=== PATIENT | male | born 1945 | race Caucasian/White ===

== ENCOUNTER 2021-11-28 06:32 | Inpatient (IN) | payer MEDICARE, BC ==
[2021-11-28] VITALS (14 sets, daily range): BP systolic 119–182; BP diastolic 72–91; PULSE 55–91; TEMP 97.1–98.8
[~2021-11-28] VITALS: Ht 167.6 cm; Wt 77.3 kg
[~2021-11-28 06:32] MED LIST: ARICEPT 5MG PO; ASPIRIN 81M81 MG/TA2 PO; ATIVAN 1MG T1 MG/TAB PO; B-12 500 MCG PO; BUPROBAN150 MG PO; CEFTIN500 MG PO; DESYREL 50MG50 MG PO; DILANTIN 100MG100 MG PO; DILANTIN 50MG C50 MG PO; FISH OIL1000 MG PO; HCTZ 25MG TAB25 MG PO; K-DUR 10 MEQ T10 MEQ PO; LIPITOR20 MG PO; LOPRESSOR100 MG PO; LOTREL 2.5 MG-11 CAP PO; MULTI VITAMINS1 TAB PO; NEURONTIN300 MG/CAP PO; NITROSTAT0.4 MG/TAB SL; PERCOCET 325 MG1 TA2 PO; REQUIP3 MG PO; SINEMET 25/101 UDTAB PO; SINEMET CR 50 M1 TER PO; SYMMETREL100 M1 PO; TYLENOL 325MG325 MG PO; ULTRAM 50MG TAB50 MG PO; WELLBUTRIN SR150 M1 PO; ZESTRIL 5MG5 MG PO; ZOLOFT 100MG100 MG PO
[2021-11-28] MEDS ORDERED: VITAMIN C500 MG PO (07:56)
[2021-11-28] MEDS ORDERED: ALIGN (07:56)
[2021-11-28] MEDS ORDERED: OPTIVE 0.5%-0.915 ML OP (07:57)
[2021-11-28] MEDS ORDERED: VITAMIN D31000 I1 PO (07:58)
[2021-11-28] MEDS ORDERED: VITAMIN B12 781 TAB PO (07:59)
[2021-11-28] MEDS ORDERED: CYMBALTA 60MG60 MG PO (07:59)
[2021-11-28] MEDS ORDERED: PROSCAR 5MG5 MG PO (08:00)
[2021-11-28] MEDS ORDERED: FLONASEALLERGY NS (08:01)
[2021-11-28] MEDS ORDERED: ZESTRIL 5MG5 MG PO (08:01)
[2021-11-28] MEDS ORDERED: MELATONIN5 M1 SL (08:02)
[2021-11-28] MEDS ORDERED: MOBIC15 MG PO (08:03)
[2021-11-28] MEDS ORDERED: TOPROL XL 50MG50 MG PO (08:03)
[2021-11-28] MEDS ORDERED: PAXIL40 MG PO (08:05)
[2021-11-28] MEDS ORDERED: SYSTANE 0.4%-0.1 SOL OU (08:06)
[2021-11-28] MEDS ORDERED: REQUIP 1MG T1 MG/TAB PO (08:07)
[2021-11-28] MEDS ORDERED: FLOMAX 0.40.4 MG/CAP PO (08:08)
[2021-11-28] MEDS ORDERED: RESTORIL 1515 MG/CAP PO (08:08)
[2021-11-28] MEDS ORDERED: MIRALAX PA17 GM/Dose PO (08:09)
[2021-11-28] MEDS ORDERED: CENA K20 MEQ/15 PO (08:10)
[2021-11-28] MEDS ORDERED: ARICEPT10 MG PO (08:11)
[2021-11-28] MEDS ORDERED: NEURONTIN300 MG/CAP PO (08:11)
[2021-11-28] MEDS ORDERED: TYLENOL 500MG500 MG PO (08:11)
[2021-11-28] MEDS ORDERED: ROBINUL1 MG PO (08:12)
[2021-11-28] MEDS ORDERED: SINGULAIR 110 MG/TAB PO (08:13)
[2021-11-28] MEDS ORDERED: AZILECT1 MG PO (08:13)
--- NOTE | 2021-11-28 09:52 | NUR ---
Initial visit; Patient and his thanked Dinkey Mechanic for looking in on him and offering encouragement and prayer. Patient and his and Dinkey Mechanic enjoyed visiting and spending a little time together having been friends and neighbors many years ago. Patient thanked Dinkey Mechanic for sharing her life and times with them. Dinkey Mechanic will look in on Jeff following his surgical procedure today.
--- NOTE | 2021-11-28 10:00 | NUR ---
Pt transferred to surgical care but remains in PACU until staff available. Pt awake and alert. brought to bedside. Call light in reach. VSS. CBI infusing with output clear, rate slow. Pt provided with sprite and jello per his request.
--- NOTE | 2021-11-28 11:00 | NUR ---
Pt tolerates jello and sprite, will advance diet per order and lunch tray ordered. Pt able to move lower extremities now. Denies needs. Call light in reach.
[2021-11-28] MEDS ORDERED: SINEMET 25/101 UDTAB PO (11:15)
--- NOTE | 2021-11-28 12:00 | NUR ---
Confirmed medication list with and pharmacy updated. Pt requests his noon Sinemet. Given per orders. Pt move legs around more and tolerates his lunch well. Denies pain or needs. Slight increase in bleeding with CBI pink-light red, rate increased slightly and output clear.
--- NOTE | 2021-11-28 13:00 | NUR ---
Pt eats 100% of lunch tray and given ice cream per request and tolerates well. Pt able to move legs around now, mild back discomfort but improves with movement. CBI rate slow and output clear-light pink. VSS.
--- NOTE | 2021-11-28 14:00 | NUR ---
Report given to ROXANA Saeed. Pt to room 328 at this time. remains at bedside and belongings placed in closet. Pt has completed post-op vitals. CBI credit 6000 mls and output remains clear-pink. Call light in reach. ROXANA Claros to bedside.
--- NOTE | 2021-11-28 14:00 | NUR ---
PT ARRIVED FROM PACU. PT COMPLETED FULL RECOVERY IN PACU. PT IS AXOX4. PT HAS ADDISON WITH CBI. PT GIVEN PO MEDS AND IVF. PT AND ORIENTED TO ROOM AND FLOOR. PT HAS CALL LIGHT AND PHONE. NO NEEDS AT THIS TIME.
--- NOTE | 2021-11-28 17:16 | NUR ---
Call placed to data integrity consultant urology regarding pt's htn. is data integrity consultant but no answer. Answering service will leave message.
--- NOTE | 2021-11-28 17:25 | NUR ---
returned message. States he will review chart and order something for HTN.
--- NOTE | 2021-11-28 18:19 | NUR ---
Pt attempted to get out of bed without assistance, bedside. Pt fell to his knee's. Pt appears to have no injuries. Pt states he is fine. Barrow catheter still in place. called and notified. No new orders received. Pt back in bed with 3 side rails up, fall precautions in place, bed alarm active, and pt and instructed Pt is not to get out of bed without staff help.
[2021-11-29 03:18] VITALS: BP 187/93; PULSE 111; TEMP 97.8
[2021-11-29 08:00] VITALS: BP 136/88; PULSE 114; TEMP 98.4
--- NOTE | 2021-11-29 08:00 | NUR ---
PATIENT IS ORIENTED X2 AND IS ABLE TO ANSWER ORIENTATION QUESTIONS HOWEVER PATIENT SEEMS TO HAVE A DIFFICULT TIME FOLLOWING DIRECTIONS AT TIMES AND HAS ASKED THE SAME QUESTIONS A COUPLE TIME DURING ASSESSMENT. PATIENT HAS HX OF PARKINSON'S. NOTED WEAK AND UNSTEADY GAIT. HX OF FALLS. PATIENT ASSISTED TO BEDSIDE CHAIR WITH 1 ASSIST. CHAIR ALARM ON. BREAKFAST TRAY AT BEDSIDE. NO C/O PAIN OR NAUSEA. IV FLUIDS INFUSING INTO RIGHT WRIST. ADDISON TO DD WITH RED-TINGED COLORED URINE WITH A FEW CLOTS NOTED. CBI INFUSING AT MOD RATE. AM MEDS GIVEN. HEAD TO TOE ASSESSMENT COMPLETE. SCD'S CURRENTLY OFF. NO OTHER NEEDS AT THIS TIME. CALL LIGHT IN REACH.
--- NOTE | 2021-11-29 09:16 | NUR ---
Follow-up visit; Patient's states he had a bad night and his blood pressure is high but she attributes this to experiencing stress because he was alone all night. Patient asked about Holy Communion and Classer explained that he will be offered the Sacraments is he is here this weekend though this is highly unlikely. Patient said he is ready to go home. He and his thanked Classer for looking in on them and offering God's blessings.
--- NOTE | 2021-11-29 10:30 | NUR ---
NOTIFIED UROLOGY OF TACHYCARDIA IN THE LOW 100'S, CURRENTLY 114. PATIENT B/P WAS ALSO HYPERTENSIVE IN THE 180'S SYSTOLIC LAST NIGHT BUT CAME DOWN INTO THE 130'S SYSTOLIC AFTER HOME DOSE OF LISINOPRIL. ASYMPTOMATIC. HX OF [place]. SEE NEW ORDERS.
--- NOTE | 2021-11-29 10:53 | NUR ---
SW met with patient to complete intake. Patient states that he lives in [facility] with his Melody Moreno [phone]. Patient provides that he uses a walker and is independent with with ADL's. states that she assists to ensure he is safe in the shower. Patient provides that he obtains HH from the ID and stated they are aware of him being in the hospital and she would inform them when he returns home to resume services. PCP is Dr. Moulton, pharmacy is the [facility]. DPOA/HC is spouse Melody Moreno. DC plan is to return home upon DC. BEENA will continue to follow. DC plan: home
[2021-11-29 11:48] LABS: BASO % 0.3 % (0.0-2.0); EOS # 0.1 K/mm3 (0.0-0.7); EOS % 0.5 % (0.0-4.0); GRAN # 7.9 K/mm3 (1.4-6.5); GRAN % 71.9 % (42.2-75.2); HEMATOCRIT 40.8 % (42.0-52.0); HEMOGLOBIN 14.2 g/dl (13.5-18.0); LYMPH # 1.9 K/mm3 (1.2-3.4); LYMPH % 17.7 % (20.0-51.0); MEAN CELL VOLUME 100 fl (80.0-100.0); MEAN CORPUSCULAR HEMOGLOBIN 35 pg (27-31); MEAN CORPUSCULAR HGB CONC 35 g/dl (33.0-37.0); MEAN PLATELET VOLUME 8.4 fl (7.4-10.4); MONO % 9.1 % (1.7-9.3); PLATELET COUNT 196 K/mm3 (130-400); REDCELL DISTRIBUTION WIDTH-CV 12.7 % (11.5-14.5)
[2021-11-29 12:00] VITALS: BP 171/96; PULSE 108; TEMP 97.7
[2021-11-29 12:07] LABS: ALKALINE PHOSPHATASE 86 U/L (40-150); ANION GAP 12 mmol/L (7-16); AST,SGOT 17 U/L (5-34); BLOOD UREA NITROGEN 13 mg/dL (8-26); CALCIUM 9.3 mg/dL (8.4-10.2); CARBON DIOXIDE 27 mmol/L (23-31); CHLORIDE 104 mmol/L (98-107); CREATININE, serum 0.79 mg/dL (0.72-1.25); GLUCOSE 121 mg/dL (70-99); POTASSIUM 3.4 mmol/L (3.5-4.5); SODIUM 143 mmol/L (136-145); TOTAL PROTEIN 7.6 gm/dL (6.2-8.1)
[2021-11-29 12:10] LABS: ALANINE AMINOTRANSFERASE < 6 U/L (0-55)
[2021-11-29 13:04] LABS: TSH w REFLEX 1.387 uIU/mL (0.350-4.940)
--- NOTE | 2021-11-29 13:30 | NUR ---
PATIENT'S CHAIR ALARM GOING OFF. CAUGHT HELPING PATIENT UP AND HE NEARLY FELL. PATIENT SAT DOWN ON THE RECLINER FOOTREST FROM A STANDING POSITION AND NURSING ENTERED ROOM JUST IN TIME TO PREVENT HIM FROM FALLING. WAS IN THE ROOM YESTERDAY WHEN HE FELL. FALL RISK EDUCATION GIVEN TO BOTH PATIENT AND AGAIN. WHEN PATIENT SAT ON RECLINER FOOT REST HE TRAPPED HIS ADDISON AND CBI TUBING IN IT AND DISCONNECTED HIS CBI AND FLUID WAS GOING ALL OVER THE BED. PATIENT ASSISTED TO COMMODE TO TRY AND HAVE A BM PER . PATIENT REPORTS HE DOESN'T NEED TO HAVE A BM THAT HE ACTUALLY NEEDS TO PEE. NURSING EDUCATED PATIENT ABOUT ADDISON INPLACE. A FEW SECONDS LATER PATIENT SAID HE NEEDS TO VOID, AGAIN NURSING EDUCATED HIM ABOUT HIS ADDISON AND SHOWED HIM HIS URINE BAG. PATIENT DEMONSTRATING INCREASED CONFUSION AND AGGITATION. PATIENT USING PROFANITY TOWARD STAFF WHILE STANDS BY AND WATCHED. PATIENT MOVED TO ROOM 325 NEAR DESK DUE TO HIGH FALL RISK AND NON-COMPLIANCE FROM PATIENT AND . BED ALARM BACK ON. PATIENT ALSO IN YELLOW GOWN AND FALL RISK PRECAUTIONS INPLACE.
--- NOTE | 2021-11-29 13:35 | NUR ---
UROLOGY NOW AT BEDSIDE AND GIVEN PATIENT STATUS UPDATE.
--- NOTE | 2021-11-29 14:00 | NUR ---
P&P PER UROLOGY. PATIENT STARTED ON 6 CUP ROUTINE. PATIENT STILL SEEMS INCREASINGLY CONFUSED, ALSO AT BEDSIDE AND BOTH WERE GIVEN POST VOID EDUCATION. URINAL AT BEDSIDE.
[2021-11-29 15:19] VITALS: BP 199/98; PULSE 97; TEMP 97.9
--- NOTE | 2021-11-29 16:40 | NUR ---
PATIENT HAS VOIDED X2 SINCE ADDISON DC'D. URINE IS PINK, NO CLOTS. WILL MONITOR PROGRESS.
--- NOTE | 2021-11-29 17:17 | NUR ---
TALKED WITH HOSPITALIST WHO AGREED WITH DISCHARGE TO HOME PER UROLOGY ATTENDING. SEE ORDERS.
--- NOTE | 2021-11-29 18:40 | NUR ---
PATIENT MEET DISCHARGE CRITERIA. AT BEDSIDE AND PATIENT EAGER TO GET HOME. GAVE DISCHARGE INSTRUCTIONS AND ANSWERED QUESTIONS/CONCERNS. DC'D TELE. DC'D IV SITE AND COVERED SITE WITH [employer]. PATIENT REQUIRED 2 ASSIST TO GET DRESSED AND INTO WC. HAS PERSONAL BELONGINGS. ESCORTED OUT TO PERSONAL VEHICLE WITH AND 2 OTHER FAMILY MEMBERS. PATIENT DISCHARGED.
== END 2021-11-29 18:40 | disposition home or self-care (01) | DRG 713 ==
LOC: SDCO 06:32 → SURG 10:46 → SDCO 11-29 13:31 → SURG 11-29 13:32
PROVIDERS: Physician Assistant; ADMIT Urology
PROC: 0VT08ZZ Resection of Prostate, Via Natural or Artificial Opening Endoscopic (ICD-10-PCS; principal; 2021-11-28 08:30)
DX: N40.1 Benign prostatic hyperplasia with lower urinary tract symptoms (principal); N13.8 Other obstructive and reflux uropathy; R00.0 Tachycardia, unspecified; I10 Essential (primary) hypertension; G20 Parkinson's disease; I25.10 Atherosclerotic heart disease of native coronary artery without angina pectoris; E78.5 Hyperlipidemia, unspecified; J30.2 Other seasonal allergic rhinitis; F02.80 Dementia in other diseases classified elsewhere, unspecified severity, without behavioral disturbance, psychotic disturbance, mood disturbance, and anxiety; F32.A Depression, unspecified; G47.00 Insomnia, unspecified; G25.81 Restless legs syndrome; G40.909 Epilepsy, unspecified, not intractable, without status epilepticus; Z85.828 Personal history of other malignant neoplasm of skin; Z88.8 Allergy status to other drugs, medicaments and biological substances; I25.2 Old myocardial infarction; Z90.89 Acquired absence of other organs; M19.90 Unspecified osteoarthritis, unspecified site; F17.210 Nicotine dependence, cigarettes, uncomplicated
CPT/HCPCS: OP; J0360; J0690; J2270; J2704; J3480; J7120

== ENCOUNTER 2023-08-04 11:01 | Day surgery (SDC) | payer MEDICARE, BC ==
[~2023-08-04] VITALS: Ht 167.6 cm; Wt 78.5 kg
[~2023-08-04 11:01] MED LIST changes: +ALIGN; +ARICEPT10 MG PO; +AZILECT1 MG PO; +CENA K20 MEQ/15 PO; +CEPHALEXIN500 M1 PO; +CYMBALTA 60MG60 MG PO; +FLOMAX 0.40.4 MG/CAP PO; +FLONASEALLERGY NS; +LR 1,000 ML IV SCH; +MELATONIN5 M1 SL; +MIRALAX PA17 GM/Dose PO; +MOBIC15 MG PO; +OPTIVE 0.5%-0.915 ML OP; +PAXIL40 MG PO; +PROSCAR 5MG5 MG PO; +PYRIDIUM 100MG100 MG PO; +REQUIP 1MG T1 MG/TAB PO; +RESTORIL 1515 MG/CAP PO; +ROBINUL1 MG PO; +SINGULAIR 110 MG/TAB PO; +SYSTANE 0.4%-0.1 SOL OU; +TOPROL XL 50MG50 MG PO; +TYLENOL 500MG500 MG PO; +VITAMIN B12 781 TAB PO; +VITAMIN C500 MG PO; +VITAMIN D31000 I1 PO; +VITAMIND3 5000 PO
[2023-08-04 12:15] VITALS: BP 178/96; PULSE 80; TEMP 98.3
[2023-08-04] MEDS ORDERED: LIPITOR 40MG TA40 MG PO (12:26)
[2023-08-04] MEDS ORDERED: FIBERCON (12:28)
[2023-08-04] MEDS ORDERED: PRINIVIL10 MG PO (12:32)
[2023-08-04] MEDS ORDERED: PAXIL 20MG20 MG PO (12:35)
[2023-08-04] MEDS ORDERED: EFFEXOR 75M75 MG/TAB PO (12:37)
[2023-08-04] MEDS ORDERED: MASON NATURAL2000 IU PO (12:38)
[2023-08-04] MEDS ORDERED: Lidocaine PF 2% (20 MG/ML) 5 ML VIAL ONE (13:07)
[2023-08-04] MEDS ORDERED: NS 10 ML IV ONE (13:07)
[2023-08-04] MEDS ORDERED: Ondansetron 4 MG/2 ML VIAL ONE (14:42)
[2023-08-04] MEDS ORDERED: dexAMETHasone 10 MG/ML VIAL ONE (14:42)
[2023-08-04] MEDS ORDERED: fentaNYL 50 MCG/ML 2 ML VIAL ONE (14:48)
[2023-08-04] MEDS ORDERED: fentaNYL 50 MCG/ML 2 ML VIAL IV PRN (15:00)
[2023-08-04] MEDS ORDERED: Ondansetron 4 MG/2 ML VIAL IV PRN (15:00)
[2023-08-04] MEDS ORDERED: HYDROmorphone 2 MG/1 ML VIAL IV PRN (15:00)
[2023-08-04] MEDS ORDERED: Iohexol 350 - 100 ML VIAL URETER-B ONE (15:00)
[2023-08-04] MEDS ORDERED: Lidocaine 2% (20 MG/ML) 20 ML UROJET UR ONE (15:00)
[2023-08-04] MEDS ORDERED: hydrALAZINE 20 MG/ML 1 ML VIAL IV PRN (15:00)
[2023-08-04 16:20] VITALS: BP 153/83; PULSE 92; TEMP 97.5
[2023-08-04 16:35] VITALS: BP 150/80; PULSE 89
[2023-08-04 16:45] VITALS: TEMP 97.5
[2023-08-04 16:50] VITALS: BP 148/81; PULSE 78
--- NOTE | 2023-08-04 19:07 | NUR ---
[id number]: PT TO RECOVERY BAY FROM PACU S/P CYSTO WITH BLADDER BX'S A&O, PLACED ON MONITOR, VSS ON RA DENIES SIGNIFICANT PAIN, COMPLAINT, OR IMMEDIATE NEED. OWEN SADLER. RECEIVED REPORT AND ASSUMED CARE OF PT FROM ROXANA GUDINO AT BEDSIDE PROVIDED FOOD/FLUIDS, TOLERATING WELL PT HAS REMAINED A&O, NAD, VSS ON RA, TOLERATING PO, IS WITHOUT SIGNIFICANT COMPLAINT, WITH STEADY GAIT BY END OF STAY IV D/C'D. D/C INSTRUCTIONS, FOLLOW UP (MD TO CALL) REVIEWED, HANDED TO PT. ALL QUESTIONS AND CONCERNS ADDRESSED TO PT SATISFACTION. TAKEN TO EXIT VIA W/C WITH ALL BELONGINGS AND PAPERWORK IN HAND, ASSISTED INTO PASSENGER SEAT OF POV. FAMILY TO DRIVE HOME.
== END 2023-08-04 17:20 | disposition home or self-care (01) ==
LOC: SDCO 11:01
DX: D09.0 Carcinoma in situ of bladder (principal); F17.290 Nicotine dependence, other tobacco product, uncomplicated
CPT/HCPCS: C1769; J0360; J0690; J1100; J1920; J2405; J2704; J3010; J7120; Q9967